=== PATIENT | female | born 1935 | race Caucasian/White ===

== ENCOUNTER → 2016-08-14 | Outpatient (CLI) | payer MEDICARE, OTHER ==
[~2016-08-14] MED LIST: COREG 3.1253.125 MG PO; LASIX40 MG PO; PRILOSEC20 MG PO; PRINIVIL (ZESTRI5 MG PO; RELIVE PO; TYLENOL ARTHRI650 MG PO; ZOCOR40 MG PO; ZYRTEC10 MG PO
[2016-08-14 10:27] LABS: ALBUMIN 3.7 gm/dL (3.5-5.0); ALK PHOS 61 IU/L (33-138); ALT 23 IU/L (12-78); ANION GAP 9.2 (10.0-19.0); AST 17 IU/L (10-40); BLOOD UREA NITROGEN 15 mg/dL (6-24); CALCIUM 8.7 mg/dL (8.5-10.5); CHLORIDE 105 mMol/L (96-110); CO2 31 mMol/L (22-32); CREATININE 0.8 mg/dL (0.5-1.1); ESTIMATED GFR (MDRD EQUATION) > 60; POTASSIUM 4.2 mMol/L (3.7-5.1); SODIUM 141 mMol/L (135-145); TOTAL BILIRUBIN 0.5 mg/dL (0.0-1.5); TOTAL PROTEIN 7.2 g/dL (6.0-8.4)
== END ==
LOC: LNHI 10:08
PROVIDERS: Internal Medicine Interventional Cardiology
DX: I25.10 Atherosclerotic heart disease of native coronary artery without angina pectoris (principal); E78.5 Hyperlipidemia, unspecified; I42.9 Cardiomyopathy, unspecified